=== PATIENT | female | born 1935 | race Caucasian/White ===

== ENCOUNTER 2016-11-06 22:56 | Emergency (ER) | payer OTHER ==
[2016-11-06] MEDS ORDERED: PHENERGAN IV ONE (23:08)
[2016-11-06] MEDS ORDERED: NS 1,000 ML IV ONE (23:08)
[2016-11-06] MEDS ORDERED: SODIUM CHLORIDE 0.9% INJ ONE (23:08)
[2016-11-06 23:14] LABS: MANUAL DIFF NEEDED? NO
[2016-11-06 23:17] LABS: BASO% 0.6 % (0.0-0.8); EOS# 0.03 X1000 (0.0-0.7); EOS% 0.5 % (0.0-10.0); HEMATOCRIT 43.3 % (37.0-47.0); HEMOGLOBIN 14.4 g/dL (12.0-16.0); IMM GRAN# 0.04 X1000 (0.0-0.04); IMM GRAN% 0.6 % (0.0-0.5); LYMPH# 0.87 X1000 (1.2-3.4); LYMPH% 13.6 % (20.5-51.1); MCH 28.1 PG (27-31); MCHC 33.3 g/dL (33-37); MCV 84.4 FL (81-99); MONO# 0.72 X1000 (0.11-0.59); MONO% 11.3 % (1.7-9.3); MPV 10.2 FL (7.4-10.4); NEUT% 73.4 % (42.2-75.2); PLT 314 X1000 (130-400); RBC 5.13 XMIL (4.2-5.4)
--- NOTE | 2016-11-06 23:25 | PROVIDER DOCUMENTATION ---
HPI-Abdominal Pain/GI Problem - General Source: patient - History of Present Illness-ABD Abdominal Pain Onset Location: reports: generalized abdomen Pain Radiation: reports: no radiation Quality of Pain: reports: aching Severity in ED: reports: mild Onset/Duration: reports: 2 days ago Timing: reports: still present, changing over time Activities at Onset: reports: none Exposure to sick contacts?: Yes ( has the same thing 2 days earlier) Modifying Factors: improves with: nothing Associated Symptoms: reports: cough, diarrhea, fever/chills, nausea, vomiting, weakness, trouble walking. denies: chest pain, diaphoresis, headaches, shortness of breath <Emmanuel Robertson - Last Filed: 11/06/16 23:35> <Adrian Gutierrez - Last Filed: 11/07/16 07:32> - General Chief Complaint: N/V/D Stated Complaint: N/V/D Time Seen by Provider: 11/06/16 23:05 Allergies/Adverse Reactions: Patient Allergies Allergy/AdvReac Type Severity Reaction Status Date / Time cephalexin monohydrate * Allergy RASH Verified 11/06/16 23:03 [From Keflex] morphine AdvReac NAUSEA Verified 11/06/16 23:03 Home Medications: Aspirin 325 mg PO DAILY 11/06/16 Atenolol 50 mg PO DAILY 11/06/16 Buspirone [Buspar] 10 mg PO BID 11/06/16 Clonazepam [Klonopin] 0.5 mg PO HS 11/06/16 Colestipol HCl [Colestid] 1 gm PO TID 11/06/16 Hydrochlorothiazide 37.5 mg PO DAILY 11/06/16 Hydrocodone/APAP 7.5 mg/325 mg [[place]-7.5] 1 each PO Q6H PRN PRN 11/06/16 Levothyroxine Sodium [Levothroid] 100 mcg PO DAILY 11/06/16 Metformin E.r. [Glucophage Xr] 1,000 mg PO DAILY 11/06/16 Metformin E.r. [Glucophage Xr] 500 mg PO HS 11/06/16 [place]-3 Fatty Acids [Fish Oil] 600 mg PO DAILY 11/06/16 Omeprazole [Prilosec] 40 mg PO DAILY 11/06/16 Tizanidine HCl [Zanaflex] 4 mg PO DAILY 11/06/16 - History of Present Illness-ABD Nature of Presenting Problems: 81 y/o WF presents to the ED with N/V/D for 2 days. Pt complains of dizziness, subjective fever, chills, cough and weakness. EMS gave pt 4mg of Zofran in route to the ER and pt states that has not helped with the nausea and states it typically take phenergan. (Emmanuel Robertson) Review of Systems - Adult - REVIEW OF SYSTEMS - ADULT Constitutional: reports: chills, fever Eyes: reports: no symptoms reported Ears, Nose, Mouth & Throat: reports: no symptoms reported Cardiovascular: denies: chest pain, edema Respiratory: reports: cough. denies: shortness of breath Gastrointestinal: reports: diarrhea, nausea, vomiting Genitourinary: reports: dysuria. denies: frequency, flank pain, incontinence, urgency Musculoskeletal: reports: no symptoms reported Integumentary: reports: no symptoms reported Neurological: reports: no symptoms reported Psychiatric: reports: no symptoms reported Endocrine: reports: no symptoms reported Hematologic/Lymphatic: reports: no symptoms reported Allergic/Immunologic: reports: no symptoms reported All Other Systems: Reviewed and Negative <Emmanuel Robertson - Last Filed: 11/06/16 23:35> Past History - Adult - PAST MEDICAL HISTORY-ADULT Review of Records: reports: Old Records Reviewed, Nursing Assessment Review, Medications Reviewed Major Childhood Illnesses: reports: denies history Cardiovascular: reports: HTN Gastrointestinal: reports: GERD Musculoskeletal: reports: fibromyalgia Endocrine/Immune: reports: Diabetes - PRIOR SURGERIES/PROCEDURES Surgical/Procedure History: reports: appendectomy, cholecystectomy, hysterectomy , back/neck - IMMUNIZATION STATUS Childhood Immunizations: See Nurse Assessment Flu Vaccine: See Nurse Assessment - FAMILY HISTORY Family History: reviewed, not pertinent - SOCIAL HISTORY Smoking: non-smoker Living Situation: family Occupation: Retired <Emmanuel Robertson - Last Filed: 11/06/16 23:35> Physical Exam-General - PHYSICAL EXAM-ADULT Initial Vital Signs Reviewed: Yes - CONSTITUTIONAL General Appearance: alert, lethargic. negative: appears well (ill in appearance ) - EYES Eyes: PERRL/EOMI, pink conjunctivae - HEAD, EARS, NOSE, MOUTH & THROAT HENMT: moist mucous membranes, normal ENT inspection, TMs normal, pharynx normal - NECK Neck: non-tender, full range of motion, supple, normal inspection - RESPIRATORY Respiratory: chest non-tender, lungs clear, normal breath sounds, no pleuratic chest pain, no respiratory distress, no accessory muscle use - CARDIOVASCULAR Cardiovascular: normal peripheral pulses, tachycardia - GASTROINTESTINAL (ABDOMEN) Abdominal Exam: normal bowel sounds, non tender, soft. negative: distended, guarding - MUSCULOSKELETAL Back Exam: normal inspection, no CVA tenderness, no vertebral tenderness Extremity: normal range of motion, non-tender, normal gait, normal inspection - SKIN Integumentary: normal color, normal turgor, warm/dry - NEUROLOGIC Neurologic: grossly normal, no motor/sensory deficits - PSYCHIATRIC Psych/Mental Status: normal thought content, normal thought process, oriented x 3, depressed affect <Emmanuel Robertson - Last Filed: 11/06/16 23:35> Progress - EKG 1 Time of EKG reading by physician:: 23:15 EKG Read and Signed by:: Zeus Zelaya EKG Interpretation (*Must complete 3 of following elements*): Abnormal Rate: 110 Rhythm: Sinus tach QRS: RBB, LVH Comments: left anterior fasicular block, left ventricular hyperthophy <Emmanuel Robertson - Last Filed: 11/06/16 23:35> - REASSESSMENT Reassessment #1 Time Reassessed: 07:27 Status: improving (Took over pt's care at 6AM. Dr. Zelaya instructed to d/c home after tx. Pt was examined. [phone]. I offered another liter IVF and more obs/woek up, but pt and her declined because she has a dog at home. agreed to watch on her closely and RTED if symptoms worsen. Pt denies CP/Abd pain. Reports her N/V/D stopped.) <Adrian Gutierrez X - Last Filed: 11/07/16 07:32> - PLAN OF CARE/RESULTS Progress/Plan/Lab Results: Laboratory Results - last 24 hr 11/06/16 11/06/16 11/06/16 23:01 23:01 23:01 WBC 6.38 RBC 5.13 Hgb 14.4 Hct 43.3 MCV 84.4 MCH 28.1 MCHC 33.3 RDW Std Deviation 16.5 H Plt Count 314 MPV 10.2 Immature Gran % (Auto) 0.6 H Neut % (Auto) 73.4 Lymph % (Auto) 13.6 L Spencer % (Auto) 11.3 H Eos % (Auto) 0.5 Baso % (Auto) 0.6 Immature Gran # (Auto) 0.04 Neut # (Auto) 4.68 Lymph # (Auto) 0.87 L Spencer # (Auto) 0.72 H Eos # (Auto) 0.03 Baso # (Auto) 0.04 Sodium 126 L Potassium 2.8 L Chloride 83 L Carbon Dioxide 21 L Anion Gap 22 BUN 33 H Creatinine 1.0 H Estimated GFR/1.73 m2 53 BUN/Creatinine Ratio 33 Glucose 184 H Calculated Osmolality 265 Calcium 9.4 Magnesium 1.4 L Total Bilirubin 0.40 AST 126 H ALT 90 H Alkaline Phosphatase 49 Total Protein 8.9 H Albumin 5.0 Globulin 4.0 Albumin/Globulin Ratio 1.0 11/07/16 04:40 WBC RBC Hgb Hct MCV MCH MCHC RDW Std Deviation Plt Count MPV Immature Gran % (Auto) Neut % (Auto) Lymph % (Auto) Spencer % (Auto) Eos % (Auto) Baso % (Auto) Immature Gran # (Auto) Neut # (Auto) Lymph # (Auto) Spencer # (Auto) Eos # (Auto) Baso # (Auto) Sodium 134 L Potassium 3.2 L Chloride 94 L Carbon Dioxide 24 L Anion Gap 17 BUN 27 H Creatinine 0.9 Estimated GFR/1.73 m2 60 BUN/Creatinine Ratio 30 Glucose 150 H Calculated Osmolality 276 Calcium 8.9 Magnesium Total Bilirubin 0.40 AST 94 H ALT 79 H Alkaline Phosphatase 43 Total Protein 7.8 Albumin 4.6 Globulin 3.0 Albumin/Globulin Ratio 1.0 Vital Signs Temp Pulse Resp BP Pulse Ox 11/07/16 06:54 119 H 18 137/77 96 11/07/16 04:10 108 H 20 141/83 97 11/07/16 02:50 94 H 16 128/85 96 11/06/16 22:57 98.1 F 114 H 16 158/102 92 L cephalexin monohydrate * [From Keflex] Allergy (Verified 11/06/16 23:03) RASH morphine Adverse Reaction (Verified 11/06/16 23:03) NAUSEA PRAVAstatin [Pravachol] 20 mg PO QHS #0 tablet 05/10/16 Aspirin 325 mg PO DAILY 11/06/16 Atenolol 50 mg PO DAILY 11/06/16 Buspirone [Buspar] 10 mg PO BID 11/06/16 Clonazepam [Klonopin] 0.5 mg PO HS 11/06/16 Colestipol HCl [Colestid] 1 gm PO TID 11/06/16 Hydrochlorothiazide 37.5 mg PO DAILY 11/06/16 Hydrocodone/APAP 7.5 mg/325 mg [[place]-7.5] 1 each PO Q6H PRN PRN 11/06/16 Levothyroxine Sodium [Levothroid] 100 mcg PO DAILY 11/06/16 Metformin E.r. [Glucophage Xr] 1,000 mg PO DAILY 11/06/16 Metformin E.r. [Glucophage Xr] 500 mg PO HS 11/06/16 [place]-3 Fatty Acids [Fish Oil] 600 mg PO DAILY 11/06/16 Omeprazole [Prilosec] 40 mg PO DAILY 11/06/16 Tizanidine HCl [Zanaflex] 4 mg PO DAILY 11/06/16 Laboratory 11/07/16 11/06/16 11/06/16 04:40 23:01 23:01 WBC 6.38 RBC 5.13 Hgb 14.4 Hct 43.3 MCV 84.4 MCH 28.1 MCHC 33.3 RDW Std Deviation 16.5 H Plt Count 314 MPV 10.2 Immature Gran % (Auto) 0.6 H Neut % (Auto) 73.4 Lymph % (Auto) 13.6 L Spencer % (Auto) 11.3 H Eos % (Auto) 0.5 Baso % (Auto) 0.6 Immature Gran # (Auto) 0.04 Neut # (Auto) 4.68 Lymph # (Auto) 0.87 L Spencer # (Auto) 0.72 H Eos # (Auto) 0.03 Baso # (Auto) 0.04 Sodium 134 L Potassium 3.2 L Chloride 94 L Carbon Dioxide 24 L Anion Gap 17 BUN 27 H Creatinine 0.9 Estimated GFR/1.73 m2 60 BUN/Creatinine Ratio 30 Glucose 150 H Calculated Osmolality 276 Calcium 8.9 Magnesium 1.4 L Total Bilirubin 0.40 AST 94 H ALT 79 H Alkaline Phosphatase 43 Total Protein 7.8 Albumin 4.6 Globulin 3.0 Albumin/Globulin Ratio 1.0 11/06/16 23:01 WBC RBC Hgb Hct MCV MCH MCHC RDW Std Deviation Plt Count MPV Immature Gran % (Auto) Neut % (Auto) Lymph % (Auto) Spencer % (Auto) Eos % (Auto) Baso % (Auto) Immature Gran # (Auto) Neut # (Auto) Lymph # (Auto) Spencer # (Auto) Eos # (Auto) Baso # (Auto) Sodium 126 L Potassium 2.8 L Chloride 83 L Carbon Dioxide 21 L Anion Gap 22 BUN 33 H Creatinine 1.0 H Estimated GFR/1.73 m2 53 BUN/Creatinine Ratio 33 Glucose 184 H Calculated Osmolality 265 Calcium 9.4 Magnesium Total Bilirubin 0.40 AST 126 H ALT 90 H Alkaline Phosphatase 49 Total Protein 8.9 H Albumin 5.0 Globulin 4.0 Albumin/Globulin Ratio 1.0 Orders Category Date Time Status Orthostatic Vital Signs NOW Care 11/07/16 06:15 Active CBC WITH DIFF [HEME] Stat Lab 11/06/16 23:01 Completed COMPREHENSIVE METABOLIC PANEL [CHEM] Stat Lab 11/06/16 23:01 Completed COMPREHENSIVE METABOLIC PANEL [CHEM] Stat Lab 11/07/16 04:40 Completed MAGNESIUM [CHEM] Stat Lab 11/06/16 23:[address] W/POSS RFLX CULT [URINALYSIS] Stat Lab 11/06/16 23:08 Uncollected 0.9% Sodium Chloride Inj [Ns] 1,000 ml Med 11/06/16 23:08 Discontinued IV 999 mls/hr Magnesium Sulfate 2 gm/S.w.i. [Magnesium Sulfate 2 gm/S Med 11/07/16 00:25 Discontinued .w.i] 50 ml IV NOW Potassium Chloride E.r. [Klor-Con] Med 11/07/16 00:25 Discontinued 40 meq PO NOW ONE Potassium Chloride E.r. [Klor-Con] Med 11/07/16 03:47 Discontinued 40 meq PO NOW ONE Promethazine [Phenergan] Med 11/06/16 23:08 Discontinued 12.5 mg IV NOW ONE Sodium Chloride 0.9% Med 11/06/16 23:08 Discontinued 10 ml INJ NOW ONE EKG [EKG] Routine Ther 11/06/16 23:08 Draft (Adrian Gutierrez) Departure <Emmanuel Robertson - Last Filed: 11/06/16 23:35> - Departure Time of Disposition Order: 07:29 Certified Medical Emergency: Emergent <Adrian Gutierrez X - Last Filed: 11/07/16 07:32> - Departure DIAGNOSIS: Gastroenteritis, Hypokalemia, Dehydration Disposition: HOME 01 Condition: Stable Additional Instructions: Follow up with PCP today. Return to ER if your symptoms worsen. Plenty of oral fluids. Prescriptions: Ondansetron Odt [Zofran 8Mg Odt] 8 mg PO Q8H PRN PRN #15 tablet PRN Reason: Nausea And Vomiting Referrals: Zeus Padgett MD [Primary Care Provider] - Attestation - Scribe Verification/Attestation Scribe:: Emmanuel Robertson Acting as Scribe for:: Zeus Zelaya Scribe documention review:: This chart was documented by a scribe and accurately reflects the service the provider performed and the decisions made by the provider. <Emmanuel Robertson - Last Filed: 11/06/16 23:35> Physician Attestation
--- NOTE | 2016-11-06 23:42 | EKG Report ---
Test Performed on : 11/06/2016 11:15:30 PM Test Reason : emboli Blood Pressure : / mmHG Vent. Rate : 110 BPM Atrial Rate : 110 BPM P-R Int : 150 ms QRS Dur : 092 ms QT Int : 346 ms P-R-T Axes : -22 -49 102 degrees QTc Int : 468 ms Sinus tachycardia. Incomplete right bundle branch block Left anterior fascicular block Left ventricular hypertrophy with repolarization abnormality Abnormal ECG When compared with ECG of 06-NOV-2016 23:13, (Unconfirmed) No significant change was found Unconfirmed Result
[2016-11-06 23:47] LABS: CALCIUM 9.4 mg/dL (8.8-10.2); POTASSIUM 2.8 mmol/L (3.5-5.1); TOTAL BILIRUBIN 0.4 mg/dL (0.20-1.00); TOTAL PROTEIN 8.9 g/dL (6.3-8.3)
[2016-11-07] MEDS ORDERED: KLOR-CON PO ONE ×2 (00:25→03:47)
[2016-11-07] MEDS ORDERED: MAGNESIUM SULFATE 2 GM/S.W.I. 50 ML IV ONE (00:25)
[2016-11-07 05:55] LABS: ALBUMIN 4.6 g/dL (3.5-5.0); CALCIUM 8.9 mg/dL (8.8-10.2); POTASSIUM 3.2 mmol/L (3.5-5.1); TOTAL BILIRUBIN 0.4 mg/dL (0.20-1.00); TOTAL PROTEIN 7.8 g/dL (6.3-8.3)
[2016-11-07 06:54] VITALS: BP 137/77
[2016-11-07 08:50] LABS: URINE SOURCE CLEAN CATCH
[2016-11-07 09:00] LABS: BILIRUBIN URINE NEGATIVE (NEGATIVE); BLOOD URINE 1+ (NEGATIVE); CLARITY CLEAR (CLEAR); COLOR YELLOW; GLUCOSE URINE NEGATIVE (NEGATIVE); LEUKOCYTES URINE 1+ (NEGATIVE); NITRITE URINE NEGATIVE (NEGATIVE); PROTEIN URINE 1+(30 mg/dL) mg/dL (NEGATIVE); UROBILINOGEN URINE NORMAL
[2016-11-07 09:16] LABS: URINE CULTURE PL NEEDED? YES; URINE EPITHELIAL CELLS <10 /HPF (<10); URINE RBC <10 /HPF (<10); URINE WBC <10 /HPF (<10)
== END 2016-11-07 08:15 | disposition home or self-care (01) ==
LOC: P.ED 22:56
DX: K52.9 Noninfective gastroenteritis and colitis, unspecified (principal); E87.6 Hypokalemia; E86.0 Dehydration; R94.31 Abnormal electrocardiogram [ECG] [EKG]; R10.84 Generalized abdominal pain; R05 Cough; R19.7 Diarrhea, unspecified; R50.9 Fever, unspecified; Z79.899 Other long term (current) drug therapy; R11.2 Nausea with vomiting, unspecified; R53.1 Weakness; R26.2 Difficulty in walking, not elsewhere classified; R42 Dizziness and giddiness; R30.0 Dysuria; R00.0 Tachycardia, unspecified; I10 Essential (primary) hypertension; K21.9 Gastro-esophageal reflux disease without esophagitis; M79.7 Fibromyalgia; E11.9 Type 2 diabetes mellitus without complications; Z79.82 Long term (current) use of aspirin
CPT/HCPCS: 80053; 81001; 83735; 85025; 87077; 87088; 87186; 93005; 96361; 96365; 96375; J2550; J3475; J7030